=== PATIENT | female | born 1980 | race Caucasian/White ===

== ENCOUNTER 2019-03-15 20:38 | Emergency (ER) | payer BC, SELFPAY ==
[~2019-03-15] VITALS: Ht 162.6 cm; Wt 122.7 kg
[2019-03-15 20:38] VITALS: BP 184/97
[2019-03-15 21:56] LABS: BASO % 0.3 % (0.0-1.0); EOS # 0.4 10^3/uL (0.0-0.5); EOS % 2.5 % (0.0-3.0); HEMATOCRIT 31.4 % (36.0-47.0); HEMOGLOBIN 9.8 g/dl (12.0-15.5); LYMPH # 4.4 10^3/uL (1.5-5.0); LYMPH % 30.9 % (24.0-44.0); MEAN CORPUSCULAR HEMOGLOBIN 26.7 pg (27.0-33.0); MEAN CORPUSCULAR HGB CONC 31.2 g/dl (32.0-36.5); MEAN CORPUSCULAR VOLUME 85.6 fl (80.0-96.0); NEUTROPHILS # 8.5 10^3/uL (1.5-8.5); PLATELET COUNT, AUTOMATED 456 10^3/uL (150-450); RED BLOOD COUNT 3.67 10^6/uL (4.00-5.40); WHITE BLOOD COUNT 14.4 10^3/uL (4.0-10.0)
--- NOTE | 2019-03-15 23:19 | REPVR ---
PROCEDURE INFORMATION: Exam: US Pelvis Complete, Transabdominal and US Pelvis, Transvaginal US Duplex Artery or Vein of the Abdominal and/or Reproductive Organs, Limited Exam date and time: 03/15/2019 10:53 PM Clinical history: 38 years old, female; Pelvic pain; Additional info: Pelvic pain, dysmenorrhea, TECHNIQUE: Imaging protocol: Real-time transabdominal and transvaginal pelvic ultrasound (complete) with image documentation. Transvaginal imaging was used for better evaluation of the endometrium and adnexa. Real-time duplex ultrasound scan of the arterial or venous flow of the abdomen and/or reproductive organs, with color Doppler flow and spectral waveform analysis with image documentation. Exam focused on the region of clinical interest. Duplex images were received to evaluate vascular conditions. COMPARISON: US PELVIC NON-OB COMPLETE 03/02/2016 4:36 PM FINDINGS: Limitations: Body habitus/bowel gas. Uterus/cervix: The uterus measures 11.3 x 5.9 x 7.8 cm transabdominally and 11.9 x 5.9 x 6.8 cm transvaginally. It is heterogeneous in echotexture, without demonstrated focal lesion. The endometrium measures 7.5 mm in thickness as best visualized transvaginally. Right adnexa: The right ovary could not be identified. Left adnexa: The left ovary measures 3.6 x 4.1 x 3.5 cm as seen transabdominally only. There is internal flow. Free fluid: No significant free fluid is demonstrated. Bladder: Unremarkable as minimally visualized. IMPRESSION: 1. Heterogeneous uterus without demonstrated focal lesion, could reflect myomatous change. 2. Unremarkable left ovary, as seen transabdominally only, with internal flow. 3. Right ovary not identified. Electronically signed by: John Hernandez On 03/15/2019 23:19:31 PM
[2019-03-15] MEDS ORDERED: MACR100C43 PO (23:54)
[2019-03-16] MEDS ORDERED: NITROFURANTOIN (MACROBID) 100 MG CAP PO ONE
[2019-03-16 01:11] LABS: CHLAMYDIA DNA AMPLIFICATION NEGATIVE (NEGATIVE); GC DNA AMPLIFICATION NEGATIVE (NEGATIVE)
== END 2019-03-16 00:11 | disposition home or self-care (01) ==
LOC: M ED 20:38
DX: N94.10 Unspecified dyspareunia (principal); N39.0 Urinary tract infection, site not specified

== ENCOUNTER 2019-06-12 04:02 | Emergency (ER) | payer BC, SELFPAY ==
[~2019-06-12] VITALS: Ht 162.6 cm; Wt 122.3 kg
[~2019-06-12 04:02] MED LIST: MACR100C43 PO
[2019-06-12 04:51] LABS: BASO # 0.1 10^3/uL (0.0-0.2); BASO % 0.3 % (0.0-1.0); EOS # 0.3 10^3/uL (0.0-0.5); EOS % 1.5 % (0.0-3.0); HEMATOCRIT 33.5 % (36.0-47.0); HEMOGLOBIN 8.9 g/dl (12.0-15.5); LYMPH # 2.1 10^3/uL (1.5-5.0); LYMPH % 11.7 % (24.0-44.0); MEAN CORPUSCULAR HEMOGLOBIN 19.3 pg (27.0-33.0); MEAN CORPUSCULAR HGB CONC 26.6 g/dl (32.0-36.5); MEAN CORPUSCULAR VOLUME 72.8 fl (80.0-96.0); MONO # 0.9 10^3/uL (0.0-0.8); MONO % 5.1 % (0.0-5.0); NEUTROPHILS # 14.2 10^3/uL (1.5-8.5); NEUTROPHILS % 80.8 % (36.0-66.0); PLATELET COUNT, AUTOMATED 397 10^3/uL (150-450); WHITE BLOOD COUNT 17.6 10^3/uL (4.0-10.0)
[2019-06-12] MEDS ORDERED: KETOROLAC 30 MG/ML VIAL (J1885) IV ONE (05:00)
[2019-06-12] MEDS ORDERED: ONDANSETRON 4MG/2ML VIAL (J2405) IV ONE ×2 (05:00→08:15)
[2019-06-12 05:29] LABS: ALBUMIN 3.4 GM/DL (3.2-5.2); ALT/SGPT 17 U/L (12-78); BILIRUBIN,DIRECT < 0.1 MG/DL (0.0-0.2); BILIRUBIN,TOTAL 0.4 MG/DL (0.2-1.0); BLOOD UREA NITROGEN 16 MG/DL (7-18); CARBON DIOXIDE LEVEL 22 MEQ/L (21-32); CHLORIDE LEVEL 111 MEQ/L (98-107); CREATININE FOR GFR 0.85 MG/DL (0.55-1.30); GLOMERULAR FILTRATION RATE > 60.0 (>60); GLUCOSE, FASTING 161 MG/DL (70-100); HCG, SERUM QUANTITATIVE < 1.0 MIU/ML; LIPASE 95 U/L (73-393); POTASSIUM SERUM 4.4 MEQ/L (3.5-5.1); SODIUM LEVEL 142 MEQ/L (136-145); TOTAL PROTEIN 6.4 GM/DL (6.4-8.2)
[2019-06-12] MEDS ORDERED: diphenhydrAMINE INJ 50MG/ML VIAL (J1200) IV ONE (05:30)
--- NOTE | 2019-06-12 07:09 | REPVR ---
PROCEDURE INFORMATION: Exam: CT Abdomen And Pelvis Without Contrast Exam date and time: 06/12/2019 5:03 AM Age: 38 years old Clinical indication: Abdominal pain; Flank; Left; Additional info: Left flank pain TECHNIQUE: Imaging protocol: Computed tomography of the abdomen and pelvis without contrast. Radiation optimization: All CT scans at this facility use at least one of these dose optimization techniques: automated exposure control; mA and/or kV adjustment per patient size (includes targeted exams where dose is matched to clinical indication); or iterative reconstruction. COMPARISON: CT ABD PELVIS W/O CONTRAST 02/05/2015 5:19 AM FINDINGS: Lungs: Minimal patchy bibasilar infiltrates. Liver: Normal. No mass. Gallbladder and bile ducts: The gallbladder is contracted with no stones. Pancreas: Normal. No ductal dilation. Spleen: Normal. No splenomegaly. Adrenals: Slight fullness of the left adrenal suggesting minimal hyperplasia which is unchanged. Kidneys and ureters: Minimal nonobstructing right renal calculus. Slight left perinephric induration and minimal left hydronephrosis and hydroureter with periureteral edema which extends to a distal left ureteral calculus approximately 14 mm above the left UVJ. The calculus measures 4 x 3 x 3 mm and demonstrates a Hounsfield measurement of 765. Stomach and bowel: Unremarkable. No obstruction. No mucosal thickening. Appendix: A normal appendix is seen. Intraperitoneal space: Unremarkable. No free air. No significant fluid collection. Vasculature: Unremarkable. No abdominal aortic aneurysm. Lymph nodes: Unremarkable. No enlarged lymph nodes. Bladder: Unremarkable as visualized. Reproductive: The ovaries appear normal and symmetric. Bones/joints: Degenerative changes of the thoracic and lumbar spine. Soft tissues: Unremarkable. IMPRESSION: 1. Resolution of right UVJ calculus and obstructive uropathy since 02/05/2015. 2. Distal left ureteral calculus approximately 14 mm above the left UVJ and measures 3 x 3 x 4 mm with secondary obstructive uropathy of the left upper tract. 3. Minimal nonobstructing right renal calculus. 4. Minimal patchy bibasilar infiltrates which are slightly increased since prior study. Electronically signed by: Mayur Terrazas On 06/12/2019 07:09:16 AM
[2019-06-12] MEDS ORDERED: MORPHINE 4 MG/ML 1ML VIAL/SYRINGE (J2270) IV ONE (07:30)
[2019-06-12] MEDS ORDERED: NS 1,000 ML IV SCH (08:14)
[2019-06-12 10:56] VITALS: O2SAT 98
[2019-06-12] MEDS ORDERED: LEVO750T13 PO (11:08)
[2019-06-12] MEDS ORDERED: PERC5TAB12 PO (11:08)
[2019-06-12] MEDS ORDERED: FLOM0.4C39 PO (11:09)
[2019-06-12] MEDS ORDERED: LevoFLOXacin 750 MG TABLET PO ONE (11:15)
[2019-06-12] MEDS ORDERED: ZOFR4TAB16 PO (11:50)
[2019-06-12 12:00] VITALS: BP 171/79
== END 2019-06-12 12:07 | disposition home or self-care (01) ==
LOC: M ED 04:02
DX: J18.9 Pneumonia, unspecified organism (principal); N20.0 Calculus of kidney
CPT/HCPCS: 74176; 80048; 80076; 81001; 83690; 84702; 85025; 96361; 96374; 96375; 96376; 99284; J1885; J2270; J2405

== ENCOUNTER → 2021-01-05 | Outpatient (CLI) | payer BC ==
[~2021-01-05] MED LIST changes: +FLOM0.4C39 PO; +LEVO750T13 PO; +PERC5TAB12 PO; +ZOFR4TAB16 PO
[2021-01-05 18:08] LABS: FREE T4 1.08 NG/DL (0.76-1.46); THYROID STIMULATING HORMONE 1.88 uIU/ML (0.358-3.740)
== END ==
LOC: M WUC 11:28
PROVIDERS: ATTEND Nurse Practitioner Family
DX: I10 Essential (primary) hypertension (principal)

== ENCOUNTER → 2021-05-14 | Outpatient (REF) | LOC: M LABSMTC 12:45 | PROVIDERS: ATTEND Pediatrics | DX: Z11.52 Encounter for screening for COVID-19 (principal) ==

== ENCOUNTER → 2022-04-07 | Outpatient (CLI) | payer OTHER ==
[~2022-04-07] MED LIST changes: +LEVO1TAB40 PO; -LEVO750T13 PO
[2022-04-07 09:16] LABS: BASO % 0.4 % (0.0-1.0); EOS # 0.2 10^3/uL (0.0-0.5); EOS % 3.2 % (0.0-3.0); HEMATOCRIT 46.3 % (36.0-47.0); HEMOGLOBIN 14.6 g/dl (12.0-15.5); LYMPH # 2.3 10^3/uL (1.5-5.0); LYMPH % 30.8 % (24.0-44.0); MEAN CORPUSCULAR HEMOGLOBIN 28.1 pg (27.0-33.0); MEAN CORPUSCULAR HGB CONC 31.5 g/dl (32.0-36.5); MONO # 0.6 10^3/uL (0.0-0.8); MONO % 7.9 % (2.0-8.0); NEUTROPHILS # 4.3 10^3/uL (1.5-8.5); NEUTROPHILS % 57.4 % (36.0-66.0); PLATELET COUNT, AUTOMATED 262 10^3/uL (150-450); WHITE BLOOD COUNT 7.5 10^3/uL (4.0-10.0)
[2022-04-07 09:57] LABS: ALBUMIN 3.6 GM/DL (3.2-5.2); ALT/SGPT 106 U/L (12-78); BILIRUBIN,TOTAL 0.5 MG/DL (0.2-1.0); BLOOD UREA NITROGEN 11 MG/DL (7-18); CARBON DIOXIDE LEVEL 26 MEQ/L (21-32); CHLORIDE LEVEL 104 MEQ/L (98-107); CHOLESTEROL LEVEL 245 MG/DL (<200); CREATININE FOR GFR 0.67 MG/DL (0.55-1.30); GLOMERULAR FILTRATION RATE > 60.0 (>60); GLUCOSE, FASTING 273 MG/DL (70-100); HDL CHOLESTEROL 35 MG/DL (>40); LDL CHOLESTEROL 154 MG/DL (<100); NON-HDL-C 210 MG/DL; POTASSIUM SERUM 3.9 MEQ/L (3.5-5.1); SODIUM LEVEL 137 MEQ/L (136-145); TOTAL PROTEIN 6.8 GM/DL (6.4-8.2); TRIGLYCERIDES LEVEL 280 MG/DL (<150)
== END ==
LOC: M LAB 07:51
PROVIDERS: ATTEND Student in an Organized Health Care Education/Training Program
DX: I10 Essential (primary) hypertension (principal)

== ENCOUNTER → 2022-04-22 | Outpatient (CLI) | payer OTHER ==
[2022-04-22 10:48] LABS: HEMOGLOBIN A1c 12.5 % (4.0-6.0)
== END ==
LOC: M LAB 09:44
PROVIDERS: ATTEND Student in an Organized Health Care Education/Training Program
DX: R73.01 Impaired fasting glucose (principal)

== ENCOUNTER → 2023-01-06 | Outpatient (REF) | payer OTHER | LOC: M LAB REF 20:21 | PROVIDERS: ATTEND Nurse Practitioner | DX: R35.0 Frequency of micturition (principal) ==

== ENCOUNTER → 2023-01-28 | Outpatient (CLI) | payer OTHER | LOC: M WHC 12:51 | PROVIDERS: ATTEND Obstetrics & Gynecology Gynecologic Oncology | DX: Z12.31 Encounter for screening mammogram for malignant neoplasm of breast (principal) ==

== ENCOUNTER → 2023-03-10 | Outpatient (CLI) | payer OTHER ==
[2023-03-10 07:53] LABS: BASO % 0.3 % (0.0-1.0); EOS # 0.2 10^3/uL (0.0-0.5); EOS % 2.5 % (0.0-3.0); HEMOGLOBIN 13.1 g/dl (12.0-15.5); LYMPH % 33.8 % (24.0-44.0); MEAN CORPUSCULAR HEMOGLOBIN 27.5 pg (27.0-33.0); MEAN CORPUSCULAR VOLUME 86.1 fl (80.0-96.0); MONO # 0.5 10^3/uL (0.0-0.8); MONO % 7.9 % (2.0-8.0); NEUTROPHILS # 3.3 10^3/uL (1.5-8.5); NEUTROPHILS % 55.3 % (36.0-66.0); PLATELET COUNT, AUTOMATED 279 10^3/uL (150-450); RED BLOOD COUNT 4.76 10^6/uL (4.00-5.40); WHITE BLOOD COUNT 5.9 10^3/uL (4.0-10.0)
[2023-03-10 08:20] LABS: CREATININE, URINE 87.9 MG/DL; MAU/CREAT RATIO 4.5 MCG/MG (0.0-30.0)
[2023-03-10 08:21] LABS: ALBUMIN 3.6 G/DL (3.2-5.2); ALKALINE PHOSPHATASE 54 U/L (46-116); ALT/SGPT 44 U/L (7.0-40); AST/SGOT 19 U/L (<34); BILIRUBIN,TOTAL 0.5 MG/DL (0.3-1.2); BLOOD UREA NITROGEN 16 MG/DL (9-23); CALCIUM LEVEL 9.7 MG/DL (8.5-10.1); CARBON DIOXIDE LEVEL 27 MMOL/L (20-31); CHLORIDE LEVEL 110 MMOL/L (98-107); CHOLESTEROL LEVEL 169 MG/DL (<200); CHOLESTEROL RISK RATIO 5.59 (<5); GLOMERULAR FILTRATION RATE > 60.0 (>58); GLUCOSE, FASTING 126 MG/DL (60-100); HDL CHOLESTEROL 30.2 MG/DL (>40); LDL CHOLESTEROL 112.6 MG/DL (<100); NON-HDL-C 138.8 MG/DL; POTASSIUM SERUM 4.1 MMOL/L (3.5-5.1); SODIUM LEVEL 143 MMOL/L (136-145); TOTAL PROTEIN 6.3 G/DL (5.7-8.2); TRIGLYCERIDES LEVEL 131 MG/DL (<150)
[2023-03-10 08:24] LABS: HEMOGLOBIN A1c 6.7 % (4.0-6.0)
== END ==
LOC: M LAB 07:08
PROVIDERS: ATTEND Family Medicine
DX: E11.9 Type 2 diabetes mellitus without complications (principal)

== ENCOUNTER 2023-06-27 10:23 | Emergency (ER) | payer OTHER ==
[~2023-06-27] VITALS: Ht 162.6 cm; Wt 127.0 kg
[2023-06-27] MEDS ORDERED: METF500T13 (10:51)
[2023-06-27] MEDS ORDERED: PRAV40TA2 (10:51)
[2023-06-27] MEDS ORDERED: LISI40TA4 (10:51)
[2023-06-27] MEDS ORDERED: AMLO1TAB25 (10:51)
[2023-06-27 12:25] VITALS: BP 160/81; TEMP 98; O2SAT 97
[2023-06-27] MEDS ORDERED: CYCL-707 PO (12:41)
[2023-06-27] MEDS ORDERED: KETO10TAB PO (12:41)
== END 2023-06-27 13:03 | disposition home or self-care (01) ==
LOC: M ED 10:23
DX: S30.0XXA Contusion of lower back and pelvis, initial encounter (principal); W00.0XXA Fall on same level due to ice and snow, initial encounter; Y92.9 Unspecified place or not applicable; Y93.9 Activity, unspecified; Z79.899 Other long term (current) drug therapy; Z79.84 Long term (current) use of oral hypoglycemic drugs; Y99.8 Other external cause status

== ENCOUNTER → 2023-07-15 | Outpatient (CLI) | payer OTHER ==
[~2023-07-15] MED LIST changes: +AMLO1TAB25; +CYCL-707 PO; +KETO10TAB PO; +LISI40TA4; +METF500T13; +PRAV40TA2
== END ==
LOC: M SOG 07:59
PROVIDERS: ATTEND Physician Assistant
DX: S32.2XXA Fracture of coccyx, initial encounter for closed fracture (principal)

== ENCOUNTER → 2023-08-05 | Outpatient (CLI) | payer OTHER | LOC: M SOG 13:36 | PROVIDERS: ATTEND Physician Assistant | DX: S32.2XXD Fracture of coccyx, subsequent encounter for fracture with routine healing (principal) ==

== ENCOUNTER → 2023-09-02 | Outpatient (CLI) | payer OTHER | LOC: M SOG 15:38 | PROVIDERS: ATTEND Physician Assistant | DX: M54.50 Low back pain, unspecified (principal) ==

== ENCOUNTER → 2023-09-06 | Outpatient (CLI) | payer OTHER | LOC: M SOG 07:54 | PROVIDERS: ATTEND Physician Assistant | DX: M25.511 Pain in right shoulder (principal) ==

== ENCOUNTER → 2023-09-21 | Outpatient (CLI) | payer OTHER | LOC: M PLAIMG 06:40 | PROVIDERS: ATTEND Physician Assistant | DX: S32.2XXD Fracture of coccyx, subsequent encounter for fracture with routine healing (principal) ==

== ENCOUNTER → 2023-10-04 | Outpatient (CLI) | payer OTHER | LOC: M RAD 09:48 | PROVIDERS: ATTEND Family Medicine | DX: M25.511 Pain in right shoulder (principal); M54.2 Cervicalgia ==

== ENCOUNTER → 2023-10-20 | Outpatient (CLI) | payer MEDICAID, OTHER, SELFPAY | LOC: M RAD 06:29 | PROVIDERS: ATTEND Physician Assistant | DX: G56.01 Carpal tunnel syndrome, right upper limb (principal) ==

== ENCOUNTER → 2023-10-27 | Outpatient (CLI) | payer MEDICAID | LOC: M PAIN 08:00 | PROVIDERS: ATTEND Nurse Practitioner Family | DX: M79.18 Myalgia, other site (principal); G89.29 Other chronic pain; E11.9 Type 2 diabetes mellitus without complications; I10 Essential (primary) hypertension; Z79.84 Long term (current) use of oral hypoglycemic drugs; Z79.1 Long term (current) use of non-steroidal anti-inflammatories (NSAID); Z79.899 Other long term (current) drug therapy; Z87.891 Personal history of nicotine dependence ==

== ENCOUNTER 2023-11-02 08:38 | Outpatient (RCR) | payer MEDICAID | END 2023-11-04 | LOC: M PT 08:38 | PROVIDERS: ATTEND Orthopaedic Surgery Hand Surgery | DX: M25.511 Pain in right shoulder (principal) ==

== ENCOUNTER → 2023-11-10 | Outpatient (REF) | payer MEDICAID ==
[~2023-11-10] MED LIST changes: -METF500T13; +METF500T13 PO; +NAPR-885 PO
[2023-11-10 18:46] LABS: BASO # 0.1 10^3/uL (0.0-0.2); BASO % 0.5 % (0.0-1.0); EOS # 0.3 10^3/uL (0.0-0.5); EOS % 2.9 % (0.0-3.0); HEMATOCRIT 46.8 % (36.0-47.0); HEMOGLOBIN 14.8 g/dl (12.0-15.5); LYMPH # 3.1 10^3/uL (1.5-5.0); MEAN CORPUSCULAR HGB CONC 31.6 g/dl (32.0-36.5); MEAN CORPUSCULAR VOLUME 85.4 fl (80.0-96.0); MONO # 0.8 10^3/uL (0.0-0.8); MONO % 8.3 % (2.0-8.0); NEUTROPHILS # 5.1 10^3/uL (1.5-8.5); PLATELET COUNT, AUTOMATED 291 10^3/uL (150-450); RED BLOOD COUNT 5.48 10^6/uL (4.00-5.40); WHITE BLOOD COUNT 9.3 10^3/uL (4.0-10.0)
[2023-11-10 18:53] LABS: ALBUMIN 3.8 G/DL (3.2-5.2); ALKALINE PHOSPHATASE 88 U/L (46-116); ALT/SGPT 30 U/L (7.0-40); AST/SGOT < 8 U/L (<34); BILIRUBIN,TOTAL 0.5 MG/DL (0.3-1.2); BLOOD UREA NITROGEN 15 MG/DL (9-23); CALCIUM LEVEL 10.4 MG/DL (8.5-10.1); CARBON DIOXIDE LEVEL 27 MMOL/L (20-31); CHLORIDE LEVEL 103 MMOL/L (98-107); CREATININE FOR GFR 0.55 MG/DL (0.55-1.30); GLOMERULAR FILTRATION RATE > 60.0 (>58); GLUCOSE, FASTING 137 MG/DL (60-100); POTASSIUM SERUM 4.6 MMOL/L (3.5-5.1); SODIUM LEVEL 137 MMOL/L (136-145); TOTAL PROTEIN 6.8 G/DL (5.7-8.2)
[2023-11-10 19:01] LABS: HEMOGLOBIN A1c 7.1 % (4.0-6.0)
== END ==
LOC: M SFHCLERA 09:52
PROVIDERS: ATTEND Family Medicine
DX: Z01.818 Encounter for other preprocedural examination (principal); E11.9 Type 2 diabetes mellitus without complications

== ENCOUNTER 2023-11-21 08:45 | Outpatient (RCR) | payer MEDICAID | END 2023-12-04 | LOC: M PT 08:45 | PROVIDERS: ATTEND Orthopaedic Surgery Hand Surgery | DX: M25.511 Pain in right shoulder (principal) ==

== ENCOUNTER 2023-11-23 06:28 | Day surgery (SDC) | payer MEDICAID ==
[~2023-11-23] VITALS: Ht 163.8 cm; Wt 141.2 kg
[2023-11-23] MEDS: LR 1,000 ML IV SCH (07:09)
[2023-11-23] MEDS ORDERED: LIDOCAINE 2% 100MG/5ML SDV (FOR ANES.) As Ordered ONE (07:21)
[2023-11-23] MEDS ORDERED: ONDANSETRON 4MG 2ML VIAL As Ordered ONE (07:21)
[2023-11-23] MEDS ORDERED: propofoL 200 MG/20 ML VIAL As Ordered ONE (07:21)
[2023-11-23] MEDS ORDERED: fentaNYL 100 MCG/2 ML INJECTION As Ordered ONE (07:21)
[2023-11-23] MEDS ORDERED: KETOROLAC 60MG 2ML VIAL As Ordered ONE (07:21)
[2023-11-23] MEDS ORDERED: MIDAZOLAM INJ 2MG/2ML VIAL As Ordered ONE (07:21)
[2023-11-23] MEDS ORDERED: ACETAMINOPHEN 1000MG 100ML IV BAG As Ordered ONE (08:01)
[2023-11-23] MEDS ORDERED: LR 1,000 ML IV SCH (08:15)
[2023-11-23] MEDS ORDERED: fentaNYL 100 MCG/2 ML INJECTION IV PRN (08:15)
[2023-11-23] MEDS ORDERED: HYDROMORPHONE HCL 0.5 MG/ 0.5 ML SYRINGE IV PRN (08:15)
[2023-11-23] MEDS ORDERED: oxyCODONE 5MG TAB PO PRN (08:15)
[2023-11-23] MEDS ORDERED: ONDANSETRON 4MG 2ML VIAL IV PRN (08:15)
[2023-11-23 09:02] VITALS: BP 125/77; TEMP 96.9; O2SAT 96
== END 2023-11-23 09:20 | disposition home or self-care (01) ==
LOC: M SDC 06:28
PROVIDERS: ATTEND Orthopaedic Surgery Hand Surgery
DX: G56.01 Carpal tunnel syndrome, right upper limb (principal); E11.9 Type 2 diabetes mellitus without complications; G47.30 Sleep apnea, unspecified; Z79.899 Other long term (current) drug therapy; Z79.84 Long term (current) use of oral hypoglycemic drugs; Z87.891 Personal history of nicotine dependence
CPT/HCPCS: 29848; J0131; J0665; J1100; J1885; J2250; J2405; J3010

== ENCOUNTER → 2023-12-27 | Outpatient (CLI) | payer MEDICAID, OTHER ==
[~2023-12-27] MED LIST changes: +TRIAMCINOLONE ACETONIDE SUSP 40MG/ML 1ML VIAL As Ordered ONE; +diazePAM 5MG TABLET As Ordered ONE
== END ==
LOC: M PAIN 08:00
PROVIDERS: ATTEND Anesthesiology
DX: M79.18 Myalgia, other site (principal); G89.29 Other chronic pain; E11.9 Type 2 diabetes mellitus without complications; I10 Essential (primary) hypertension; Z79.84 Long term (current) use of oral hypoglycemic drugs; Z79.899 Other long term (current) drug therapy; Z79.1 Long term (current) use of non-steroidal anti-inflammatories (NSAID); Z87.891 Personal history of nicotine dependence
CPT/HCPCS: 20552; J0665; J3301

== ENCOUNTER 2024-01-03 11:45 | Outpatient (RCR) | payer MEDICAID, OTHER ==
[~2024-01-03 11:45] MED LIST changes: -TRIAMCINOLONE ACETONIDE SUSP 40MG/ML 1ML VIAL As Ordered ONE; -diazePAM 5MG TABLET As Ordered ONE
== END 2024-01-04 ==
LOC: M PT 11:45
PROVIDERS: ATTEND Orthopaedic Surgery Hand Surgery
DX: M25.511 Pain in right shoulder (principal)

== ENCOUNTER 2024-01-26 08:13 | Outpatient (RCR) | payer OTHER | END 2024-02-04 | LOC: M PT 08:13 | PROVIDERS: ATTEND Orthopaedic Surgery Hand Surgery | DX: M25.511 Pain in right shoulder (principal) ==

== ENCOUNTER → 2024-01-27 | Outpatient (CLI) | payer MEDICAID, OTHER | LOC: M PAIN 09:00 | PROVIDERS: ATTEND Nurse Practitioner Family | DX: G89.29 Other chronic pain (principal); M79.18 Myalgia, other site; E11.9 Type 2 diabetes mellitus without complications; I10 Essential (primary) hypertension; Z79.1 Long term (current) use of non-steroidal anti-inflammatories (NSAID); Z79.84 Long term (current) use of oral hypoglycemic drugs; Z79.899 Other long term (current) drug therapy; Z87.891 Personal history of nicotine dependence ==

== ENCOUNTER → 2024-03-30 | Outpatient (CLI) | payer MEDICAID, OTHER | LOC: M PAIN 09:00 | PROVIDERS: ATTEND Nurse Practitioner Family | DX: M79.18 Myalgia, other site (principal); E11.9 Type 2 diabetes mellitus without complications; I10 Essential (primary) hypertension; Z79.84 Long term (current) use of oral hypoglycemic drugs; Z79.899 Other long term (current) drug therapy; Z79.1 Long term (current) use of non-steroidal anti-inflammatories (NSAID); Z87.891 Personal history of nicotine dependence ==

== ENCOUNTER → 2024-06-18 | Outpatient (REF) | payer MEDICAID, OTHER ==
[2024-06-18 17:43] LABS: TOTAL 25(OH) VITAMIN D 18.8 NG/ML (20.0-100.0)
[2024-06-18 18:01] LABS: BLOOD UREA NITROGEN 12 MG/DL (9-23); CALCIUM LEVEL 9.6 MG/DL (8.5-10.1); CARBON DIOXIDE LEVEL 25 MMOL/L (20-31); CHLORIDE LEVEL 101 MMOL/L (98-107); CREATININE FOR GFR 0.51 MG/DL (0.55-1.30); GLOMERULAR FILTRATION RATE > 60.0 (>58); GLUCOSE, FASTING 483 MG/DL (60-100); PTH INTACT 83.9 PG/ML (18.5-88.0); SODIUM LEVEL 137 MMOL/L (136-145)
== END ==
LOC: M SFHCLERA 11:15
PROVIDERS: ATTEND Family Medicine
DX: E83.52 Hypercalcemia (principal)

== ENCOUNTER → 2024-06-19 | Outpatient (REF) | payer MEDICAID, OTHER ==
[2024-06-19 18:25] LABS: BASO % 0.4 % (0.0-1.0); EOS # 0.2 10^3/uL (0.0-0.5); HEMATOCRIT 45.5 % (36.0-47.0); HEMOGLOBIN 14.7 g/dl (12.0-15.5); LYMPH # 2.2 10^3/uL (1.5-5.0); LYMPH % 28.2 % (24.0-44.0); MEAN CORPUSCULAR HEMOGLOBIN 27.2 pg (27.0-33.0); MEAN CORPUSCULAR HGB CONC 32.3 g/dl (32.0-36.5); MEAN CORPUSCULAR VOLUME 84.1 fl (80.0-96.0); MONO # 0.6 10^3/uL (0.0-0.8); MONO % 7.8 % (2.0-8.0); NEUTROPHILS # 4.9 10^3/uL (1.5-8.5); NEUTROPHILS % 61.2 % (36.0-66.0); PLATELET COUNT, AUTOMATED 247 10^3/uL (150-450); RED BLOOD COUNT 5.41 10^6/uL (4.00-5.40)
[2024-06-19 18:52] LABS: CREATININE, URINE 48.3 MG/DL; MALB URINE SIEMENS < 3.0 MG/L
[2024-06-19 18:54] LABS: HEMOGLOBIN A1c > 14.0 % (4.0-6.0)
[2024-06-19 18:56] LABS: ALBUMIN 3.5 G/DL (3.2-5.2); ALKALINE PHOSPHATASE 126 U/L (35-104); ALT/SGPT 83 U/L (7.0-40); AST/SGOT 37 U/L (<34); BILIRUBIN,TOTAL 0.4 MG/DL (0.3-1.2); BLOOD UREA NITROGEN 17 MG/DL (9-23); CALCIUM LEVEL 9.3 MG/DL (8.5-10.1); CARBON DIOXIDE LEVEL 26 MMOL/L (20-31); CHLORIDE LEVEL 101 MMOL/L (98-107); CREATININE FOR GFR 0.96 MG/DL (0.55-1.30); GLOMERULAR FILTRATION RATE > 60.0 (>58); GLUCOSE, FASTING 453 MG/DL (60-100); POTASSIUM SERUM 4.8 MMOL/L (3.5-5.1); SODIUM LEVEL 136 MMOL/L (136-145); TOTAL PROTEIN 6.6 G/DL (5.7-8.2)
== END ==
LOC: M SFHCADAM 11:18
PROVIDERS: ATTEND Family Medicine
DX: E11.65 Type 2 diabetes mellitus with hyperglycemia (principal)

== ENCOUNTER → 2024-12-10 | Outpatient (CLI) | payer OTHER ==
[~2024-12-10] MED LIST changes: -FLOM0.4C39 PO; +LISI40TA10; -LISI40TA4; -PRAV40TA2; +PRAV40TA85; +TAMS-18 PO
== END ==
LOC: M WHC 07:54
PROVIDERS: ATTEND Nurse Practitioner Family
DX: Z12.31 Encounter for screening mammogram for malignant neoplasm of breast (principal)

== ENCOUNTER → 2024-12-28 | Outpatient (CLI) | payer OTHER ==
[2024-12-28 18:12] LABS: ESTIMATED AVERAGE GLUCOSE 120.0 MG/DL (60-110)
[2024-12-28 18:18] LABS: ALT/SGPT 24 U/L (7.0-40); AST/SGOT 14 U/L (<34); CALCIUM LEVEL 9.6 MG/DL (8.5-10.1); CARBON DIOXIDE LEVEL 28 MMOL/L (20-31); CHLORIDE LEVEL 105 MMOL/L (98-107); CREATININE FOR GFR 0.60 MG/DL (0.55-1.30); GLOMERULAR FILTRATION RATE > 90.0 (>58); POTASSIUM SERUM 3.8 MMOL/L (3.5-5.1); SODIUM LEVEL 143 MMOL/L (136-145)
== END ==
LOC: M LAB 16:19
PROVIDERS: ATTEND Family Medicine
DX: E11.9 Type 2 diabetes mellitus without complications (principal); Z79.85 Long-term (current) use of injectable non-insulin antidiabetic drugs

== ENCOUNTER → 2024-12-28 | Outpatient (CLI) | payer OTHER ==
[2024-12-28 18:17] LABS: ALT/SGPT 26 U/L (7.0-40); AST/SGOT 14 U/L (<34); CALCIUM LEVEL 9.8 MG/DL (8.5-10.1); CARBON DIOXIDE LEVEL 28 MMOL/L (20-31); CHLORIDE LEVEL 105 MMOL/L (98-107); CREATININE FOR GFR 0.61 MG/DL (0.55-1.30); GLOMERULAR FILTRATION RATE > 90.0 (>58); POTASSIUM SERUM 3.8 MMOL/L (3.5-5.1); SODIUM LEVEL 145 MMOL/L (136-145)
== END ==
LOC: M LAB 16:24
PROVIDERS: ATTEND Nurse Practitioner Family
DX: C54.1 Malignant neoplasm of endometrium (principal); R10.32 Left lower quadrant pain; E11.9 Type 2 diabetes mellitus without complications

== ENCOUNTER → 2025-01-07 | Outpatient (CLI) | payer OTHER ==
[~2025-01-07] MED LIST changes: +ISOVUE-370 76% 100 ML VIAL As Ordered ONE
== END ==
LOC: M RAD 16:21
PROVIDERS: ATTEND Nurse Practitioner Family
DX: C54.1 Malignant neoplasm of endometrium (principal); R10.32 Left lower quadrant pain; R16.0 Hepatomegaly, not elsewhere classified; Z90.710 Acquired absence of both cervix and uterus
CPT/HCPCS: 74177; Q9967

== ENCOUNTER → 2025-02-20 | Outpatient (REF) ==
[~2025-02-20] MED LIST changes: -ISOVUE-370 76% 100 ML VIAL As Ordered ONE
[2025-02-20 13:59] LABS: SOFIA COVID ANTIGEN NEGATIVE (NEGATIVE)
== END ==
LOC: M EMP 11:29
PROVIDERS: ATTEND Family Medicine
DX: Z01.89 Encounter for other specified special examinations (principal)

== ENCOUNTER → 2025-06-02 | Outpatient (REF) | payer OTHER, MEDICAID | LOC: M LAB REF 15:13 | PROVIDERS: ATTEND Registered Nurse | DX: J02.9 Acute pharyngitis, unspecified (principal) ==